=== PATIENT | male | born 1980 | race Caucasian/White ===

== ENCOUNTER 2017-02-07 14:52 | Emergency (ER) | payer OTHER ==
[2017-02-07 15:41] VITALS: O2SAT 98
--- NOTE | 2017-02-07 17:05 | EDPHY ---
H & P Time Seen by Provider: 02/07/17 17:03 HPI/ROS: Chief complaint. Chest injury HPI. 36-year-old male presents emergency department with injury to his left chest this occurred yesterday. 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 He was hauling a low down fell forward striking his chest. He has pain to the left chest that is worse with deep breathing and twisting. He also injured his right shoulder and has decreased range of motion. Did not strike his head or lose consciousness. No neck or back pain. Some left upper quadrant abdominal pain. ROS Constitutional. no fever/chills, no weakness Eyes. no problems with vision ENT. no sore throat, no nasal drainage Cardiovascular. Chest pain Respiratory. Pain with deep breathing Abdominal. Left upper quadrant abdominal pain . no problems urinating MS. no calf pain/swelling, no neck/back pain, no joint pain Skin. no rash Lymph. no swollen glands Neuro. no headache, no dizziness, no difficulty walking or with speech Past Medical/Surgical History: Celiac disease Social History: , nonsmoker, no alcohol Smoking Status: Never smoked Physical Exam: General Appearance: Alert well-developed male moderate distress vital signs are stay Eyes: Pupils equal and round no pallor or injection. ENT, Mouth: Mucous membranes are moist. Respiratory: There are no retractions, lungs are clear to auscultation. Cardiovascular: Regular rate and rhythm. Gastrointestinal: Abdomen is tender to palpation in the left upper quadrant., no masses, bowel sounds normal. Neurological: Awake and alert, sensory and motor exams grossly normal. Skin: Warm and dry, no rashes. Musculoskeletal: Neck is supple nontender. Anterior ribs are tender on the left. Extremities decreased range of motion right shoulder but no obvious evidence of trauma or dislocation Psychiatric: Patient is oriented X 3, there is no agitation. Constitutional: Initial Vital Signs Temperature (C) 36.6 C 02/07/17 15:37 Heart Rate 59 L 02/07/17 15:37 Respiratory Rate 16 02/07/17 15:37 Blood Pressure 130/79 H 02/07/17 15:37 O2 Sat (%) 98 02/07/17 15:37 O2 Delivery Mode Room Air Allergies/Adverse Reactions: No Known Allergies Allergy (Unverified 06/01/14 09:33) Home Medications: Medication Instructions Recorded NK [No Known Home Meds] 04/20/15 Medical Decision Making - Diagnostics Imaging Results: Imaging Impressions Chest X-Ray 02/07/17 16:57 Impression: Normal. No posttraumatic abnormality identified. Abdomen CT 02/07/17 17:17 Impression: Constipation. Otherwise normal CT abdomen and pelvis, with IV contrast. Results called and discussed with Ghulam Jin M.D., on February 07, 2017 at 1830. Chest x-ray interpreted by me shows no evidence of rib fracture or pneumothorax. Right shoulder appears normal on the chest x-ray. No evidence for dislocation or fracture CT abdomen pelvis with IV contrast shows no evidence of intra-abdominal injury or rib fracture Procedures: IV normal saline with 1 L given. ED Course/Re-evaluation: Re-evaluation at 7:00 p.m.. Patient is stable. He and I discussed imaging and lab results. We discussed treatment plan including criteria for return importance of follow-up further evaluation. He expresses understanding and agreement Differential Diagnosis: I considered rib fractures, pneumothorax, spleen injury. He probably has rotator cuff injury to the right shoulder - Data Points Laboratory Results: 02/07/17 17:24 POC Hgb 15.6 gm/dL gm/dL (13.7-17.5) POC Hct 46 % % (40-51) POC Sodium 143 mEq/L mEq/L (134-144) POC Potassium 3.8 mEq/L mEq/L (3.3-5.0) POC Chloride 102 mEq/L mEq/L (97-110) POC BUN 10 mg/dL mg/dL (7-23) POC Creatinine 0.9 mg/dL mg/dL (0.7-1.3) POC Glucose 91 mg/dL mg/dL (70-100) Medications Given: Discontinued Medications Sodium Chloride (Ns) 1,000 mls @ 0 mls/hr IV ONCE ONE; Wide Open PRN Reason: Protocol Stop: 02/07/17 17:17 Last Admin: 02/07/17 17:27 Dose: 1,000 mls Point of Care Test Results: 02/07/17 17:24 POC Sodium 143 POC Potassium 3.8 POC Chloride 102 POC BUN 10 POC Creatinine 0.9 POC Glucose 91 Departure - Departure Disposition: Home, Routine, Self-Care Clinical Impression: Contusion, chest wall Qualifiers: Encounter type: initial encounter Laterality: left Qualified Code(s): S20.212A - Contusion of left front wall of thorax, initial encounter Condition: Good Instructions: Contusion in Adults (ED) Additional Instructions: Easy activity. Tylenol and ibuprofen as needed for discomfort. Return for worsening symptoms. Keep appointment with occupational health for MRI tomorrow. Follow up with orthopedist if not improving Referrals: NONE *PRIMARY CARE P,. [Primary Care Provider] - As per Instructions Wilmer Garcia MD [Medical Doctor] - 5-7 days, if not improved
[2017-02-07] MEDS ORDERED: NS 1,000 ML IV ONE (17:16)
[2017-02-07] MEDS ORDERED: IOPAMIDOL (ISOVUE-300) 100 ML BTL ONE (17:18)
[2017-02-07 19:31] VITALS: BP 128/74; PULSE 74; RESP 18; TEMP 98.1
== END 2017-02-07 19:31 | disposition home or self-care (01) ==
DX: S20.212A Contusion of left front wall of thorax, initial encounter (principal); E86.9 Volume depletion, unspecified; W01.198A Fall on same level from slipping, tripping and stumbling with subsequent striking against other object, initial encounter; Y99.0 Civilian activity done for income or pay; Y93.89 Activity, other specified
CPT/HCPCS: 82947-QW; Q9967